=== PATIENT | male | born 1995 | race Caucasian/White ===

== ENCOUNTER 2019-10-20 18:03 | Emergency (ER) | payer OTHER ==
[~2019-10-20] VITALS: Ht 175.3 cm; Wt 97.5 kg
[2019-10-20 18:15] VITALS: Ht 175.3 cm; Wt 97.5 kg
[2019-10-20 19:17] LABS: BASOPHIL % 0.4 % (0-2); PLATELET COUNT 269 x10^3mcL (130-400); RED CELL DISTRIBUTION WIDTH 13.1 % (11.5-14.5)
[2019-10-20 19:39] LABS: ALBUMIN 4.5 g/dL (3.4-5.0); ALKALINE PHOSPHATASE 75 U/L (46-116); ALT/SGPT 63 U/L (16-63); AST/SGOT 22 U/L (15-37); BILIRUBIN TOTAL 0.4 mg/dL (0.20-1.00); CALCIUM 9.4 mg/dL (8.5-10.1); CARBON DIOXIDE 28.8 mmol/L (21-32); CHLORIDE SERUM 101 mmol/L (98-107); CREATININE SERUM 0.9 mg/dL (0.7-1.3); GFR1 > 60 mL/min; GLUCOSE SERUM 98 mg/dL (74-106); LIPASE 89 IU/L (73-393); SODIUM SERUM 138 mmol/L (136-145)
[2019-10-20 19:42] LABS: TOTAL PROTEIN, SERUM 8.5 g/dL (6.4-8.2)
[2019-10-20 19:59] LABS: microscopic required? NO
[2019-10-20 20:32] LABS: urine erythrocyte NEGATIVE (NEGATIVE)
[2019-10-20 22:09] VITALS: BP 142/91
== END 2019-10-20 22:19 | disposition home or self-care (01) ==
LOC: ED 18:03
PROVIDERS: Emergency Medicine
DX: K29.70 Gastritis, unspecified, without bleeding (principal)
CPT/HCPCS: 36415; Q0092